=== PATIENT | female | born 1975 | race Two or more races ===

== ENCOUNTER 2024-01-22 05:48 | Emergency (ER) | payer BC ==
[~2024-01-22] VITALS: Ht 170.2 cm; Wt 59.2 kg
[2024-01-22 06:20] VITALS: BP 113/45; PULSE 67; RESP 12; TEMP 98.2
[2024-01-22 06:43] VITALS: O2SAT 99
[2024-01-22] MEDS ORDERED: TRIA0.02 TOP (06:57)
[2024-01-22] MEDS: methylPREDNISolone SOD SUCC 125 MG/2 ML VL IM ONE (07:02)
== END 2024-01-22 07:31 | disposition home or self-care (01) ==
LOC: ER 05:48
DX: T78.49XA Other allergy, initial encounter (principal); X58.XXXA Exposure to other specified factors, initial encounter
CPT/HCPCS: 96372; 99283; J2919

== ENCOUNTER 2024-05-15 07:36 | Emergency (ER) | payer BC ==
[~2024-05-15] VITALS: Ht 167.6 cm; Wt 58.6 kg
[~2024-05-15 07:36] MED LIST: TRIA0.02 TOP
[2024-05-15 08:55] VITALS: BP 116/39; PULSE 90; RESP 17; TEMP 99.5; O2SAT 99
[2024-05-15 09:34] LABS: Chloride 105 mmol/L (98-107); Potassium 3.9 mmol/L (3.5-5.1); Sodium 137 mmol/L (136-145)
[2024-05-15 09:35] LABS: Anion Gap 4 (5-15); Carbon Dioxide 28 mmol/L (20-31)
[2024-05-15 09:36] LABS: Calcium 10.3 mg/dL (8.7-10.4)
[2024-05-15 09:40] LABS: Glucose 95 mg/dL (74-106)
[2024-05-15 09:41] LABS: BUN/Creatinine Ratio 12.7 (10.0-20.0); Basophils # (auto) 0 10 ^3/uL (0-0.2); Basophils % (auto) 0.2 % (0.0-2.0); Blood Urea Nitrogen 10 mg/dL (9-23); Eosinophils # (auto) 0.2 10 ^3/uL (0-0.8); Eosinophils % (auto) 2.5 % (0.0-7.0); Hematocrit 43.4 % (36.0-46.0); Hemoglobin 14.7 g/dL (12.2-16.2); Lymphocytes # (auto) 0.9 10 ^3/uL (0.4-5.4); Lymphocytes % (auto) 11.7 % (10.0-50.0); Mean Corpuscular Hemoglobin 30.6 pg (28.0-32.0); Mean Corpuscular Hgb Conc. 33.9 g/dL (32.0-36.0); Mean Corpuscular Volume 90.2 fL (80.0-100.0); Monocytes # (auto) 0.7 10 ^3/uL (0-1.3); Monocytes % (auto) 8.8 % (0.0-12.0); Neutrophils # (auto) 6.2 10 ^3/uL (1.6-8.6); Neutrophils % (auto) 76.8 % (37.0-80.0); Platelet Count (auto) 208 10^3/uL (140-450); Red Blood Cells 4.81 10^6/uL (4.0-5.20); Red Cell Distribution Width 12.8 % (11.8-14.3); White Blood Cell 8.1 10^3/uL (4.4-10.8)
[2024-05-15 09:42] LABS: Urine Bacteria MOD /hpf (None Seen); Urine Blood 3+ /uL (Negative); Urine Clarity Turbid (Clear); Urine Color Light-Orange (Yellow); Urine Mucus FEW (None Seen); Urine Protein, UAD TRACE (Negative); Urine Specific Gravity 1.023 (1.001-1.035); Urine Urobilinogen Normal (Negative); Urine WBC 33 /hpf (0 - 5)
[2024-05-15] MEDS ORDERED: NITR-87 PO (10:07)
== END 2024-05-15 10:12 | disposition home or self-care (01) ==
LOC: ER 07:36
DX: N30.90 Cystitis, unspecified without hematuria (principal); Z88.0 Allergy status to penicillin; Z79.899 Other long term (current) drug therapy; Z91.048 Other nonmedicinal substance allergy status
CPT/HCPCS: 36415; 74018; 80048; 81001; 85025

== ENCOUNTER 2024-11-07 06:05 | Emergency (ER) | payer BC ==
[~2024-11-07] VITALS: Ht 170.2 cm; Wt 59.0 kg
[~2024-11-07 06:05] MED LIST changes: +NITR-87 PO
--- NOTE | 2024-11-07 06:27 | ED.PDOC ---
Psychiatric HPI Comments 49 y.o female presents to the ED via EMS for an evaluation of anxiety. EMS reports on scene patient had carpopedal spams, stated patient had been arguing with for a couple days which has increased her stress. Patient reports son is currently living in another state and fearful of his mental health as he has been talking about SI recently. Patient reports she has no way of traveling to see her son and that this is the reason why she is anxious and hyperventilating. Patient denies any SI or HI herself. No other symptoms or pain reported. Chief Complaint: Anxiety Time Seen by MD: 06:15 Primary Care Provider: JAE Reviewed Notes: Nurses Notes, Patent Litigation Associate Notes, Medications, Allergies Information Source: Patient, Emergency Med Personnel Mode of Arrival: EMS Severity: Able to Care for Self Severity of Pain: None Severity of Mental Status: Moderate Severity of Symptoms: Moderate Timing: Hours Duration: Since onset Presents with: Anxiety Ingestion: None Circumstance: Medical Clearance Current substance abuse: None Stressors: Family History of: None Associated signs and symptoms: Anxiety Past Medical History PAST MEDICAL HISTORY: Denies Surgical History: Denies all surgeries PRODUCTION PATTERN MAKER History: No Pertinent PRODUCTION PATTERN MAKER History Family History Family History: Reviewed,noncontributory to illness Social History Smoker: Non-Smoker Alcohol: Denies ETOH Use Drugs: Denies Drug Use Lives In: Home Constitutional: denies: chills, diaphoresis, fatigue, fever, malaise, sweats, weakness, others EENTM: denies: blurred vision, double vision, ear bleeding, ear discharge, ear drainage, ear pain, ear ringing, eye pain, eye redness, hearing loss, mouth pain, mouth swelling, nasal discharge, nose bleeding, nose congestion, nose pain, photophobia, tearing, throat pain, throat swelling, voice changes, others Respiratory: denies: cough, hemoptysis, orthopnea, SOB at rest, shortness of breath, SOB with excertion, stridor, wheezing, others Cardiovascular: denies: chest pain, dizzy spells, diaphoresis, Dyspnea on exertion, edema, irregular heart beat, left arm pain, lightheadedness, palpitations, PND, syncope, others Gastrointestinal: denies: abdomen distended, abdominal pain, blood streaked bowels, constipated, diarrhea, dysphagia, difficulty swallowing, hematemesis, melena, nausea, poor appetite, poor fluid intake, rectal bleeding, rectal pain, vomiting, others Genitourinary: denies: abnormal vagina bleeding, burning, dyspareunia, dysuria, flank pain, frequency, hematuria, incontinence, pain, , vagina discharge, urgency, others Neurological: denies: dizziness, fainting, headache, left sided numbness, left sided weakness, numbness, paresthesia, pre-existing deficit, right sided numbness, right sided weakness, seizure, speech problems, tingling, tremors, weakness, others Musculoskeletal: denies: back pain, gout, joint pain, joint swelling, muscle pain, muscle stiffness, neck pain, others Integumetry: denies: bruises, change in color, change in hair/nails, dryness, laceration, lesions, lumps, rash, wounds, others Allergic/Immunocompromised: denies: Difficulty Healing, Frequent Infections, Hives, Itching, others Hematologic/Lymphatic: denies: anemia, blood clots, easy bleeding, easy bruising, swollen glands, others Endocrine: denies: excessive hunger, excessive sweating, excessive thirst, excessive urination, flushing, intolerance to cold, intolerance to heat, unexpl ained weight gain, unexplained weight loss, others Psychiatric: reports: anxiety; denies: bipolar disorder, depression, hopeless, panic disorder, schizophrenia, sleepless, suicidal, others Physical Exam General Appearance: Moderate Distress (Tearful ) HEENT: NOT DONE Neck: NOT DONE Respiratory: No Respiratory Distress Cardiovascular: Regular Rate/Rhythm Breast Exam: Deferred Gastrointestinal: NOT DONE Genitalia: Deferred Pelvic: Deferred Rectal: Deferred Extremities: Normal inspection Neurologic: Alert, Normal Affect, No Sensory Deficits Cerebellar Function: Normal Reflexes: NOT DONE Skin: Normal Color Lymphatic: NOT DONE Was a procedure done? Was a procedure done?: No Psych Differential Dx Psych. Differential Dx: Anxiety, Panic Disorder, Sleepless OD Differential Dx: Depression Suicidal Differential Dx: Depression Intoxication Differential Dx: Depression X-Ray, Labs, Meds, VS Vital Signs Date Time Temp Pulse Resp B/P (MAP) Pulse Ox O2 Delivery O2 Flow Rate FiO2 11/07/24 09:16 65 16 98 Room Air* 0 21 11/07/24 09:16 98.3 65 16 114/43 (66) 98 98.3 11/07/24 06:22 98.0 90 26 129/90 (103) 99 98.0 Current Medications Medications (Trade) Dose Ordered Sig/Hood Route Start Time Stop Time Status Last Admin Lorazepam (Ativan Tablet) 1 mg ONCE ONCE PO 11/07/24 06:30 11/07/24 06:31 DC 11/07/24 09:21 Time of 1ST Reevaluation: 06:22 Reevaluation 1ST: Unchanged Patient Education/Counseling: Diagnosis, Treatment, Prognosis Family Education/Counseling: No Family Present Departure 1 Departure Time of Disposition: 09:37 (Patient with anxiety attack. No suicidal ideation homicidal ideation or hallucinations. We will discharge patient home with outpatient follow up) Impression: Primary Impression: Anxiety reaction Disposition: 01 HOME / SELF CARE / HOMELESS Condition: Stable Additional Instructions: It is important to follow up with the regular doctors continue to take your regular medications. Discharged With: Self Critical Care Note Critical Care Time?: No Stability Stability form required: No I personally scribed for LUI SCOTT MD ([email or web address]) on 11/07/24 at 06:27. Electronically submitted by Farzaneh Pratt ([facility]). LUI SCOTT MD Nov 07, 2024 06:27
[2024-11-07 09:16] VITALS: BP 114/43; PULSE 65; RESP 16; TEMP 98.3; O2SAT 98
[2024-11-07] MEDS: LORazepam 0.5 MG TAB PO ONE (09:21)
== END 2024-11-07 09:49 | disposition home or self-care (01) ==
LOC: EDBD 06:05 → ER 06:05 → EDUNIT# 06:05 → ER 09:49
DX: F41.1 Generalized anxiety disorder (principal)

== ENCOUNTER 2025-05-21 06:21 | Emergency (ER) | payer BC ==
[~2025-05-21] VITALS: Ht 170.2 cm; Wt 61.1 kg
--- NOTE | 2025-05-21 07:25 | ED.PDOC ---
Back pain HPI HPI Comments This is a 49 year-old female who presents to the ED with a chief complaint of lower back pain as of X2 weeks ago. Patient denies any trauma or injury to the area. Patient states she is currently on antibiotics for UTI, and is experiencing pelvic pressure with constant urination. Patient has no further complaints at this time and otherwise denies further associated symptoms of fever, chills, dizziness, weakness, or N/V/D. Chief Complaint: Back Pain Time Seen by MD: 07:25 Primary Care Provider: JAE Hart Notes: Medications, Allergies Allergies: Coded Allergies: Iron (Verified Allergy, Unknown, 01/22/24) Penicillins (Verified Allergy, Unknown, 01/22/24) Home Meds Active Scripts Nitrofurantoin Monohydrate Mac (Macrobid) 100 Mg Cap, 100 MG PO BID for 7 Days, #14 CAP 0 Refills Prov:SILVERIO SANTOS NP 05/15/24 Triamcinolone Acetonide (Triamcinolone Acetonide) 0.025 % Cre, 1 APPLIC TOP BID, #30 GRAMS Prov:ERNESTO GARCIA 01/22/24 Information Source: Patient Mode of Arrival: Ambulatory Timing: Weeks Duration: Since onset Location of Back pain: (B) Lower back Severity: Moderate Onset: Spontaneous Associated signs and symptoms: Other (Back Pain ) Past Medical History PAST MEDICAL HISTORY: UTI'S Surgical History: Denies all surgeries BUILDING CONSTRUCTION FOREMAN History: No Pertinent BUILDING CONSTRUCTION FOREMAN History Family History Family History: Reviewed,noncontributory to illness Social History Smoker: Non-Smoker Alcohol: Denies ETOH Use Drugs: Denies Drug Use Lives In: Home Constitutional: denies: chills, diaphoresis, fatigue, fever, malaise, sweats, weakness, others EENTM: denies: blurred vision, double vision, ear bleeding, ear discharge, ear drainage, ear pain, ear ringing, eye pain, eye redness, hearing loss, mouth pain, mouth swelling, nasal discharge, nose bleeding, nose congestion, nose pain, photophobia, tearing, throat pain, throat swelling, voice changes, others Respiratory: denies: cough, hemoptysis, orthopnea, SOB at rest, shortness of breath, SOB with excertion, stridor, wheezing, others Cardiovascular: denies: chest pain, dizzy spells, diaphoresis, Dyspnea on exertion, edema, irregular heart beat, left arm pain, lightheadedness, palpitations, PND, syncope, others Gastrointestinal: denies: abdomen distended, abdominal pain, blood streaked bowels, constipated, diarrhea, dysphagia, difficulty swallowing, hematemesis, melena, nausea, poor appetite, poor fluid intake, rectal bleeding, rectal pain, vomiting, others Genitourinary: denies: abnormal vagina bleeding, burning, dyspareunia, dysuria, flank pain, frequency, hematuria, incontinence, pain, , vagina disc harge, urgency, others Neurological: denies: dizziness, fainting, headache, left sided numbness, left sided weakness, numbness, paresthesia, pre-existing deficit, right sided numbness, right sided weakness, seizure, speech problems, tingling, tremors, weakness, others Musculoskeletal: reports: back pain; denies: gout, joint pain, joint swelling, muscle pain, muscle stiffness, neck pain, others Integumetry: denies: bruises, change in color, change in hair/nails, dryness, laceration, lesions, lumps, rash, wounds, others Allergic/Immunocompromised: denies: Difficulty Healing, Frequent Infections, Hives, Itching, others Hematologic/Lymphatic: denies: anemia, blood clots, easy bleeding, easy bruising, swollen glands, others Endocrine: denies: excessive hunger, excessive sweating, excessive thirst, excessive urination, flushing, intolerance to cold, intolerance to heat, unexplained weight gain, unexplained weight loss, others Psychiatric: denies: anxiety, bipolar disorder, depression, hopeless, panic disorder, schizophrenia, sleepless, suicidal, others All Other Systems: Reviewed and Negative Was a procedure done? Was a procedure done?: No Back Pain Differential Dx Differential Diagnosis: Fracture, Musculoskeletal Pain, Urolithiasis X-Ray, Labs, Meds, VS Vital Signs Date Time Temp Pulse Resp B/P (MAP) Pulse Ox O2 Delivery O2 Flow Rate FiO2 05/21/25 06:29 98.6 89 18 127/62 97 98.6 Lab Test 05/21/25 07:29 Range/Units Urine Color Pending Urine Clarity Pending Urine pH Pending Urine Specific [place] Pending Urine Protein Pending Urine Ketones Pending Urine Blood Pending Urine Nitrite Pending Urine Bilirubin Pending Urine Urobilinogen Pending Urine Leukocyte Esterase Pending Urine RBC Pending Urine Microscopic WBC Pending Urine Squamous Epithelial Cells Pending Urine Bacteria Pending Urine Glucose Pending Images Reviewed?: Images reviewed and evaluated by me Time of 1ST Reevaluation: 08:14 Reevaluation 1ST: Unchanged Patient Education/Counseling: Diagnosis, Treatment Family Education/Counseling: No Family Present SEPSIS Sepsis Screen Date sepsis recognized/suspect: May 21, 2025 Time Sepsis recognized/suspect: 06 Recent Procedure: No On Antibiotic Therapy: Yes Respiratory Rate >20: No Heart Rate >90: No Temp<36 C (96.8 F) or >38.3 C: No SBP <90 or MAP <65 mmHG: No New Acute Mental Status Change: No Is the patient on CPAP, BIPAP,: No Physician Orders Complete Blood Count (05/21/25 07:15) Comprehensive Metabolic Panel (05/21/25 07:15) Urinalysis (05/21/25 07:15) Lactic Acid W/ Reflex Order (05/21/25 07:15) Blood Culture (05/21/25 07:15) Vital Signs Date Time Temp Pulse Resp B/P (MAP) Pulse Ox O2 Delivery O2 Flow Rate FiO2 05/21/25 06:29 98.6 89 18 127/62 97 98.6 Critical Care Note Critical Care Time?: No Stability Stability form required: No Heart Score Heart Score: Heart Score Response (Comments) Value History N/A 0 EKG N/A 0 Age N/A 0 Risk Factors N/A 0 Troponin N/A 0 Total 0 I personally scribed for YUVAL PIMENTEL MD ([email or web address]) on 05/21/25 at 07:25. Electronically submitted by Cynthia Billingsley ([employer]). I personally scribed for YUVAL PIMENTEL MD ([email or web address]) on 05/21/25 at 07:38. Electronically submitted by Cynthia Billingsley ([employer]). YUVAL PIMENTEL MD May 21, 2025 07:25
--- NOTE | 2025-05-21 07:44 | ED.PDOC ---
General HPI Comments This is a 49 year-old female who presents to the ED with a chief complaint of R flank pain and pelvic pressure after being diagnosed with a UTI X2 weeks ago. Patient denies any trauma or injury to the area. Patient states she visited the [facility] urgent care last week and was prescribed antibiotics for diagnosed UTI. Patient reports little to no relief with the prescribed antibiotics, and is currently taking a different antibiotic. Patient states R flank pain is constant, exacerbated with bending down, and has no known relief factors. Patient expresses concerns at this time for possible kidney stone. Patient has no further complaints and otherwise denies further associated symptoms of fever, chills, dizziness, weakness, or N/V/D. Chief Complaint: Back Pain Time Seen by MD: 07:32 Primary Care Provider: JAE Hart notes: Medications, Allergies Allergies: Coded Allergies: Iron (Verified Allergy, Unknown, 01/22/24) Penicillins (Verified Allergy, Unknown, 01/22/24) Home Meds Active Scripts Nitrofurantoin Monohydrate Mac (Macrobid) 100 Mg Cap, 100 MG PO BID for 7 Days, #14 CAP 0 Refills Prov:SILVERIO SANTOS NP 05/15/24 Triamcinolone Acetonide (Triamcinolone Acetonide) 0.025 % Cre, 1 APPLIC TOP BID, #30 GRAMS Prov:ERNESTO GARCIA 01/22/24 Information Source: Patient Mode of Arrival: Ambulatory Severity: Moderate Timing: Days Duration: Since onset Prehospital treatment: None Onset: Spontaneous History of: UTI associated signs and symptoms: Flank Pain, Dysuria Past Medical History PAST MEDICAL HISTORY: UTI'S Surgical History: Denies all surgeries DRILLING MACHINE OPERATOR History: No Pertinent DRILLING MACHINE OPERATOR History Family History Family History: Reviewed,noncontributory to illness Social History Smoker: Non-Smoker Alcohol: Denies ETOH Use Drugs: Denies Drug Use Lives In: Home Constitutional: denies: chills, diaphoresis, fatigue, fever, malaise, sweats, weakness, others EENTM: denies: blurred vision, double vision, ear bleeding, ear discharge, ear drainage, ear pain, ear ringing, eye pain, eye redness, hearing loss, mouth pain, mouth swelling, nasal discharge, nose bleeding, nose congestion, nose pain, photophobia, tearing, throat pain, throat swelling, voice changes, others Respiratory: denies: cough, hemoptysis, orthopnea, SOB at rest, shortness of breath, SOB with excertion, stridor, wheezing, others Cardiovascular: denies: chest pain, dizzy spells, diaphoresis, Dyspnea on exertion, edema, irregular heart beat, left arm pain, lightheadedness, palpitations, PND, syncope, others Gastrointestinal: denies: abdomen distended, abdominal pain, blood streaked bowels, constipated, diarrhea, dysphagia, difficulty swallowing, hematemesis, melena, nausea, poor appetite, poor fluid intake, rectal bleeding, rectal pain, vomiting, others Genitourinary: denies: abnormal vagina bleeding, burning, dyspareunia, dysuria, flank pain, frequency, hematuria, incontinence, pain, , vagina discharge, urgency, others Neurological: denies: dizziness, fainting, headache, left sided numbness, left sided weakness, numbness, paresthesia, pre-existing deficit, right sided numbness, right sided weakness, seizure, speech problems, tingling, tremors, weakness, others Musculoskeletal: denies: back pain, gout, joint pain, joint swelling, muscle pain, muscle stiffness, neck pain, others Integumetry: denies: bruises, change in color, change in hair/nails, dryness, laceration, lesions, lumps, rash, wounds, others Allergic/Immunocompromised: denies: Difficulty Healing, Frequent Infections, Hives, Itching, others Hematologic/Lymphatic: denies: anemia, blood clots, easy bleeding, easy bruising, swollen glands, others Endocrine: denies: excessive hunger, excessive sweating, excessive thirst, excessive urination, flushing, intolerance to cold, intolerance to heat, unexplained weight gain, unexplained weight loss, others Psychiatric: denies: anxiety, bipolar disorder, depression, hopeless, panic disorder, schizophrenia, sleepless, suicidal, others All Other Systems: Reviewed and Negative Physical Exam General Appearance: Moderate Distress HEENT: Normal ENT Inspection, Pharynx Normal, TMs Normal Neck: Full Range of Motion, Non-Tender, Normal, Normal Inspection Respiratory: Chest Non-Tender, Lungs Clear, No Accessory Muscle Use, No Respiratory Distress, Normal Breath Sounds Cardiovascular: No Edema, No JVD, No Murmur, No Gallop, Normal Peripheral Pulses, Regular Rate/Rhythm Breast Exam: Deferred Gastrointestinal: No Organomegaly, Non Tender, No Pulsatile Mass, Normal Bowel Sounds, Soft Genitalia: Deferred Pelvic: Deferred Rectal: Deferred Extremities: No calf tenderness, Normal capillary refill, Normal inspection, Normal range of motion, Non-tender, No pedal edema Musculoskeletal : Apperance: Normal Neurologic: Alert, inventory auditor II-XII nml as Tested, No Motor Deficits, Normal Affect, Normal Mood, No Sensory Deficits Cerebellar Function: Normal Reflexes: Normal Skin: Dry, Normal Color, Warm Peripheral Pulses: 3+ Radial (R), 3+ Radial (L) Lymphatic: No Adenopathy Was a procedure done? Was a procedure done?: No Differential Diagnosis Kidney stone (Female): Musculoskeletal pain, Urinary obstruction, Urolithiasis Urinary Problem (Female): Urolithiasis, UTI, Vaginitis X-Ray, Labs, Meds, VS Vital Signs Date Time Temp Pulse Resp B/P (MAP) Pulse Ox O2 Delivery O2 Flow Rate FiO2 05/21/25 09:13 Room Air* 0 21 05/21/25 09:12 97.9 62 18 133/58 (83) 98 97.9 05/21/25 08:30 98.3 62 18 116/83 (94) 100 98.3 05/21/25 08:30 62 18 100 Room Air 05/21/25 06:29 98.6 89 18 127/62 97 98.6 Lab Test 05/21/25 07:29 Range/Units Urine Color Colorless Yellow Urine Clarity Clear Clear Urine pH 6.0 5.0-9.0 Urine Specific [place] 1.005 1.001-1.035 Urine Protein Negative Negative Urine Ketones Negative Negative Urine Blood Negative Negative /uL Urine Nitrite Negative Negative Urine Bilirubin Negative Negative Urine Urobilinogen Normal Negative mg/dL Urine Leukocyte Esterase Negative Negative /uL Urine RBC 1 0 - 4 /hpf Urine Microscopic WBC 2 0-5 /HPF Urine Squamous Epithelial Cells Few <5 /hpf Urine Transitional Epithelial Cells Few <2 /hpf Urine Bacteria Few H None Seen /hpf Urine Mucus Few None Seen Urine Glucose Normal Normal mg/dL [facility] [id number] [facility] [id number] Ph: [phone] DIAGNOSTIC IMAGING Diagnostic Imaging Report : [id number] Signed PATIENT: ULISES HUNT RACCT: [id number] UNIT: [id number] : 1975 LOC: ER ROOM / BED: / AGE / SEX: 49 / F ADM STATUS: REG ER SERVICE [id number] ORDERING PHYSICIAN: YUVAL PIMENTEL MD PROCEDURE(s): ABPL - CT AB PEL WO CON-NO ORAL OR IV REASON: stone ORDER NUMBER(s): [id number], ACCESSION NUMBER(s): [id number] CT CT AB PEL WO CON-NO ORAL OR IV INDICATION: stone EXAM DATE: 05/21/2025 07:38 AM COMPARISON: XY KUB ABDOMEN SINGLE VIEW on DOS: 05/15/24, CT UROGRAM on DOS: 05/28/19 RADIATION DOSE: CTDIvol: 6 mGy, DLP: 355 mGy*cm PROCEDURE: Helical CT images were obtained of the abdomen and pelvis without IV contrast Sagittal and coronal reconstructions are provided. ORAL CONTRAST: None. ADDITIONAL IMAGES / REFORMATS: None All CT scans at this medical facility are performed using dose modulation techniques as appropriate to a performed exam including the following: Automated exposure control was utilized; adjustment of the MA and/or KV according to patient size; and use of iterative reconstruction technique. FINDINGS: LUNG BASE: Normal. LIVER: Normal. GALLBLADDER AND BILIARY TREE: No calcified gallstones. Normal caliber wall. No intra- or extrahepatic biliary ductal dilation. PANCREAS: Normal. SPLEEN: Normal. BOWEL: Normal. ADRENALS: Normal. KIDNEYS AND URETER: Normal. BLADDER: Normal. REPRODUCTIVE ORGANS: Normal. LYMPH NODES:No lymphadenopathy. PERITONEUM: No ascites or free air. No other fluid collection. VESSELS: Scattered atherosclerotic calcifications are noted. RETROPERITONEUM: Normal. ABDOMINAL WALL: Normal. BONES: Scattered osseous degenerative changes are noted. IMPRESSION: No acute intraabdominal abnormality. No kidney stones are seen. Patient alert. Complaining of back pain. Is taking antibiotics for urinary tract infection. Vitals stable. Answering questions. Explained to the patient. Was told to follow up with her primary care physician. Was told to come back if there is any problem. Time of 1ST Reevaluation: 08:14 Reevaluation 1ST: Unchanged Patient Education/Counseling: Diagnosis, Treatment, Prognosis, Need For Follow Up Family Education/Counseling: No Family Present SEPSIS Sepsis Screen Date sepsis recognized/suspect: May 21, 2025 Time Sepsis recognized/suspect: 06 Recent Procedure: No On Antibiotic Therapy: Yes Respiratory Rate >20: No Heart Rate >90: No Temp<36 C (96.8 F) or >38.3 C: No SBP <90 or MAP <65 mmHG: No New Acute Mental Status Change: No Is the patient on CPAP, BIPAP,: No Physician Orders Blood Culture (05/21/25 07:15) Ct Ab Pel Wo Con-No Oral Or Iv (05/21/25 07:39) Vital Signs Date Time Temp Pulse Resp B/P (MAP) Pulse Ox O2 Delivery O2 Flow Rate FiO2 05/21/25 09:13 Room Air* 0 21 05/21/25 09:12 97.9 62 18 133/58 (83) 98 97.9 05/21/25 08:30 98.3 62 18 116/83 (94) 100 98.3 05/21/25 08:30 62 18 100 Room Air 05/21/25 06:29 98.6 89 18 127/62 97 98.6 Departure 1 Departure Time of Disposition: 07:47 Impression: Primary Impression: Lumbar sprain Qualified Codes: S33.5XXA - Sprain of ligaments of lumbar spine, initial encounter Disposition: HOME / SELF CARE / HOMELESS Condition: Good Discharged With: Self Critical Care Note Critical Care Time?: No Stability Stability form required: No Heart Score Heart Score: Heart Score Response (Comments) Value History N/A 0 EKG N/A 0 Age N/A 0 Risk Factors N/A 0 Troponin N/A 0 Total 0 I personally scribed for YUVAL PIMENTEL MD ([email or web address]) on 05/21/25 at 07:44. Electronically submitted by Cynthia Billingsley ([employer]). I personally scribed for YUVAL PIMENTEL MD ([email or web address]) on 05/21/25 at 08:44. Electronically submitted by Cynthia Billingsley ([employer]). YUVAL PIMENTEL MD May 21, 2025 07:44
[2025-05-21 07:47] LABS: Urine Protein, UAD Negative (Negative)
--- NOTE | 2025-05-21 08:28 | DVH ---
CT CT AB PEL WO CON-NO ORAL OR IV INDICATION: stone EXAM DATE: 05/21/2025 07:38 AM COMPARISON: XY KUB ABDOMEN SINGLE VIEW on DOS: 05/15/24, CT UROGRAM on DOS: 05/28/19 RADIATION DOSE: CTDIvol: 6 mGy, DLP: 355 mGy*cm PROCEDURE: Helical CT images were obtained of the abdomen and pelvis without IV contrast Sagittal and coronal reconstructions are provided. ORAL CONTRAST: None. ADDITIONAL IMAGES / REFORMATS: None All C T scans at this medical facility are performed using dose modulation techniques as appropriate to a p erformed exam including the following: Automated exposure control was utilized; adjustment of the MA and/or KV according to patient size; and use of iterative reconstruction technique. FINDINGS: LUNG BASE: Normal. LIVER: Normal. GALLBLADDER AND BILIARY TREE: No calcified gallstones. Normal caliber wall. No intra- or extrahepatic biliary ductal dilation. PANCREAS: Normal. SPLEEN: Normal. BOWEL: Normal. ADRENALS: Normal. KIDNEYS AND URETER: Normal. BLADDER: Normal. REPRODUCTIVE ORGANS: Normal. LYMPH NODES:No lymphadenopathy. PERITONEUM: No ascites or free air. No other fluid collection. VESSELS: Scattered atherosclerotic calcifications are noted. RETROPERITONEUM: Normal. ABDOMINAL WALL: Normal. BONES: Scattered osseous degenerative changes are noted. IMPRESSION: No acute intraabdominal abnormality. No kidney stones are seen.
[2025-05-21 09:12] VITALS: BP 133/58; PULSE 62; RESP 18; TEMP 97.9; O2SAT 98
== END 2025-05-21 09:13 | disposition home or self-care (01) ==
LOC: ER 06:21
DX: S33.5XXA Sprain of ligaments of lumbar spine, initial encounter (principal); Z87.440 Personal history of urinary (tract) infections; Z88.0 Allergy status to penicillin; Z79.899 Other long term (current) drug therapy; X58.XXXA Exposure to other specified factors, initial encounter; Y93.89 Activity, other specified; Y92.89 Other specified places as the place of occurrence of the external cause; Y99.8 Other external cause status
CPT/HCPCS: 74176; 81001; 87040